=== PATIENT | female | born 1935 | race Caucasian/White ===

== ENCOUNTER 2016-11-30 11:35 | Emergency (ER) | payer MEDICARE, OTHER ==
[~2016-11-30] VITALS: Ht 172.7 cm; Wt 79.4 kg
[2016-11-30 11:35] VITALS: BP 149/65; PULSE 81; RESP 19; TEMP 98.2; O2SAT 95
[~2016-11-30 11:35] MED LIST: ATEN-41 PO; LEVO25TA58 PO; POTA8CAP PO; SIMV5TAB53 PO; WARF1TAB2 PO; [UNRECOGNIZED DRUG - CODE] PO; [UNRECOGNIZED DRUG - CODE] PO
--- NOTE | 2016-11-30 11:35 | NUR ---
BROUGHT IN BY MARIELA THOMASON AND PLACED IN BED #6, TRIAGED, REPORT GIVEN TO [place]
[2016-11-30 13:04] LABS: ALANINE AMINOTRANSFERASE 18 U/L (12-78); ALBUMIN 3.9 g/dL (3.4-4.8); ANION GAP 7 (5-15); ASPARTATE AMINOTRANSFERASE 19 U/L (10-37); CALCIUM 10.9 mg/dL (8.4-11.0); CHLORIDE 98 mmol/L (98-107); CHOLESTEROL 187 mg/dL (<200); GLUCOSE 102 mg/dL (70-99); HDL CHOLESTEROL 61 mg/dL (>55); LDL CHOLESTEROL 109 mg/dL (<100); POTASSIUM 3.5 mmol/L (3.5-5.1); SODIUM SERUM 135 mmol/L (136-145); TOTAL BILIRUBIN 0.5 mg/dL (0.0-1.0); TOTAL PROTEIN, SERUM 7.9 g/dL (6.4-8.3); TRIGLYCERIDES 59 mg/dL (30-150)
[2016-11-30 13:06] LABS: BASOPHILS % (AUTO) 0.2 % (0.0-2.0); EOSINOPHILS % (AUTO) 0.2 % (0.0-4.0); HEMATOCRIT 35.8 % (36-48); HEMOGLOBIN 11.8 g/dL (12.0-16.0); INR 2.1 (0.8-1.2); LYMPHOCYTES # (AUTO) 1.4 K/uL (1.0-5.5); MEAN CORPUSCULAR HEMOGLOBIN 30 pg (27-31); MEAN CORPUSCULAR HGB CONC 33 % (32-36); MEAN CORPUSCULAR VOLUME 90 fL (79.0-98.0); MONOCYTES # (AUTO) 0.4 K/uL (0.0-1.0); MONOCYTES % (AUTO) 6.2 % (1.7-9.3); NEUTROPHILS % (AUTO) 68.4 % (40.0-70.0); PLATELET COUNT (AUTO) 183 K/uL (130-430); PROTHROMBIN TIME 23.9 SECS (9.5-12.5); RED BLOOD CELL COUNT(AUTO) 3.97 MIL/uL (4.2-6.2); RED CELL DISTRIBUTION WIDTH 13.7 % (9.0-15.0); WHITE BLOOD COUNT (AUTO) 5.8 K/uL (4.8-10.8)
[2016-11-30 13:15] LABS: UREA NITROGEN, BLOOD 24 mg/dL (8-21)
--- NOTE | 2016-11-30 13:34 | NUR ---
DR ZAYAS AT BEDSIDE FOR EVALUATION
--- NOTE | 2016-11-30 13:36 | NUR ---
ER at bedside examining patient.
--- NOTE | 2016-11-30 13:45 | NUR ---
Pt c/o bib EMS c/o dizziness. Pt reports dizziness resolved prior to ED arrival.
--- NOTE | 2016-11-30 13:50 | NUR ---
PT [address] TEST.
--- NOTE | 2016-11-30 14:05 | NUR ---
Patient given written and verbal discharge instructions and verbalizes understanding. ER MD discussed with patient the results and treatment provided. Given copies of tests performed in ER. Patient in stable condition. ID arm band removed. Rx of Antivert given. Patient educated on pain management and to follow up with PMD. Pain Scale 0. Opportunity for questions provided and answered.
[2016-11-30 14:06] VITALS: BP 140/82; PULSE 86; RESP 19; TEMP 98.2; O2SAT 95
== END 2016-11-30 14:06 | disposition home or self-care (01) ==
LOC: SED 11:36
DX: R42 Dizziness and giddiness (principal); I10 Essential (primary) hypertension; I48.91 Unspecified atrial fibrillation; Z88.0 Allergy status to penicillin; Z88.1 Allergy status to other antibiotic agents
CPT/HCPCS: 36415; 71010; 80053; 80061; 83880; 84484; 85025; 85610-TC; 85730-TC; 93005; 99285

== ENCOUNTER 2019-08-27 00:43 | Inpatient (IN) | payer MEDICARE, OTHER ==
[2019-08-27] VITALS (7 sets, daily range): BP systolic 116–145
[~2019-08-27] VITALS: Ht 170.2 cm; Wt 103.5 kg
[~2019-08-27 00:43] MED LIST changes: +LEVO25TA2 PO; -LEVO25TA58 PO; -SIMV5TAB53 PO; +SIMV5TAB59 PO; +[UNRECOGNIZED DRUG - CODE] PO; -[UNRECOGNIZED DRUG - CODE] PO
[2019-08-27] MEDS ORDERED: NACL 0.9% 1,000 ML IV ONE ×2 (00:49→06:45)
[2019-08-27] MEDS ORDERED: IPRATROPIUM BROM 0.5 MG/2.5 ML VIAL.NEB (ATROVENT) IH ONE ×2 (01:00→06:15)
[2019-08-27] MEDS ORDERED: ALBUTEROL SULFATE 0.083% 2.5 MG/3 ML VIAL.NEB IH ONE ×2 (01:00→06:15)
[2019-08-27 01:46] LABS: ANION GAP 13 (5-15); CALCIUM 10.7 mg/dL (8.4-11.0); CHLORIDE 96 mmol/L (98-107); CREATININE 0.91 mg/dL (0.55-1.30); GLUCOSE 148 mg/dL (70-99); POTASSIUM 3.3 mmol/L (3.5-5.1); SODIUM SERUM 133 mmol/L (136-145); UREA NITROGEN, BLOOD 11 mg/dL (8-21)
[2019-08-27 01:54] LABS: BASOPHILS % (AUTO) 0.2 % (0.0-2.0); HEMATOCRIT 36.2 % (36-48); HEMOGLOBIN 12.1 g/dL (12.0-16.0); LYMPHOCYTES % (AUTO) 21.3 % (20.5-51.5); MEAN CORPUSCULAR HEMOGLOBIN 31 pg (27-31); MEAN CORPUSCULAR HGB CONC 34 % (32-36); MEAN CORPUSCULAR VOLUME 92 fL (79.0-98.0); MONOCYTES # (AUTO) 0.6 K/uL (0.0-1.0); NEUTROPHILS # (AUTO) 3.1 K/uL (1.8-7.7); NEUTROPHILS % (AUTO) 66.5 % (40.0-70.0); PLATELET COUNT (AUTO) 129 K/uL (130-430); RED BLOOD CELL COUNT(AUTO) 3.92 MIL/uL (4.2-6.2); RED CELL DISTRIBUTION WIDTH 15.7 % (9.0-15.0); WHITE BLOOD COUNT (AUTO) 4.7 K/uL (4.8-10.8)
[2019-08-27 02:00] LABS: ALANINE AMINOTRANSFERASE 15 U/L (12-78); AMYLASE 60 U/L (0-100); ASPARTATE AMINOTRANSFERASE 24 U/L (10-37); LIPASE 153 U/L (73-393); TOTAL BILIRUBIN 0.9 mg/dL (0.0-1.0)
[2019-08-27 02:07] LABS: ALCOHOL, BLOOD < 3 mg/dL (<10)
[2019-08-27 02:25] LABS: INR 3.3 (0.8-1.2)
[2019-08-27 03:06] LABS: PROTHROMBIN TIME 32.1 SECS (9.5-12.5)
[2019-08-27] MEDS ORDERED: IPRATROPIUM/ALBUTEROL SULFATE 3 ML AMPUL.NEB (DUONEB) INH PRN (06:15)
[2019-08-27] MEDS ORDERED: FURO-149 PO (10:42)
[2019-08-27] MEDS ORDERED: LEVO200T8 PO (10:50)
[2019-08-27] MEDS ORDERED: WARF4TAB2 PO (10:50)
[2019-08-27] MEDS: AZITHROMYCIN 250 MG TABLET PO ONE ×2 (11:00→12:00)
[2019-08-27] MEDS ORDERED: methylPREDNISolone SOD SUCC 40 MG/ML VIAL IVP ONE (11:00)
[2019-08-27] MEDS: IPRATROPIUM/ALBUTEROL SULFATE 3 ML AMPUL.NEB (DUONEB) INH SCH ×3 (11:14→20:03)
[2019-08-27] MEDS: cefTRIAXone 1 GM IVPB PREMIX 50 ML IV SCH (12:22)
[2019-08-27] MEDS ORDERED: FUROSEMIDE 40 MG TABLET PO ONE (13:00)
[2019-08-27] MEDS ORDERED: ATENOLOL 25 MG TABLET(TENORMIN) PO ONE (13:00)
[2019-08-27] MEDS ORDERED: LEVOTHYROXINE SODIUM 0.1 MG TABLET PO ONE (13:15)
[2019-08-27] MEDS ORDERED: POTASSIUM CHLORIDE 20 MEQ TAB.PRT.SR PO ONE (13:30)
[2019-08-27] MEDS ORDERED: DOXYCYCLINE HYCLATE 100 MG CAPSULE PO ONE (13:45)
[2019-08-27] MEDS ORDERED: THIAMINE HCL 100 MG TABLET PO ONE (13:45)
[2019-08-27] MEDS: WARFARIN SODIUM 2 MG TABLET PO SCH (17:23)
[2019-08-27] MEDS ORDERED: WARFARIN SODIUM 4 MG TABLET PO SCH (18:00)
[2019-08-27] MEDS: DOXYCYCLINE HYCLATE 100 MG CAPSULE PO SCH (21:00)
[2019-08-27] MEDS: methylPREDNISolone SOD SUCC 40 MG/ML VIAL IVP SCH (21:02)
[2019-08-28 00:22] VITALS: BP_SYST 158
[2019-08-28] MEDS ORDERED: ACETAMINOPHEN 325 MG TABLET PO PRN (01:00)
[2019-08-28] MEDS ORDERED: LORazepam 1 MG TABLET PO PRN (01:00)
[2019-08-28] MEDS ORDERED: FUROSEMIDE 40 MG/4 ML VIAL IVP SCH (01:10)
[2019-08-28] MEDS: IPRATROPIUM/ALBUTEROL SULFATE 3 ML AMPUL.NEB (DUONEB) INH PRN ×2 (01:27→16:56)
[2019-08-28] MEDS ORDERED: LEVOTHYROXINE SODIUM 0.1 MG TABLET PO SCH (06:00)
[2019-08-28] MEDS: IPRATROPIUM/ALBUTEROL SULFATE 3 ML AMPUL.NEB (DUONEB) INH SCH ×4 (06:19→19:08)
[2019-08-28 06:54] LABS: ANION GAP 9 (5-15); CALCIUM 10.7 mg/dL (8.4-11.0); CHLORIDE 97 mmol/L (98-107); CREATININE 0.82 mg/dL (0.55-1.30); GLUCOSE 154 mg/dL (70-99); POTASSIUM 3.4 mmol/L (3.5-5.1); SODIUM SERUM 133 mmol/L (136-145); UREA NITROGEN, BLOOD 14 mg/dL (8-21)
[2019-08-28 06:55] LABS: BASOPHILS % (AUTO) 0.1 % (0.0-2.0); HEMATOCRIT 35.3 % (36-48); HEMOGLOBIN 12.1 g/dL (12.0-16.0); LYMPHOCYTES # (AUTO) 0.6 K/uL (1.0-5.5); LYMPHOCYTES % (AUTO) 19.9 % (20.5-51.5); MEAN CORPUSCULAR HEMOGLOBIN 31 pg (27-31); MEAN CORPUSCULAR HGB CONC 34 % (32-36); MEAN CORPUSCULAR VOLUME 90 fL (79.0-98.0); MONOCYTES # (AUTO) 0.2 K/uL (0.0-1.0); MONOCYTES % (AUTO) 7.2 % (1.7-9.3); NEUTROPHILS # (AUTO) 2.3 K/uL (1.8-7.7); NEUTROPHILS % (AUTO) 72.8 % (40.0-70.0); PLATELET COUNT (AUTO) 135 K/uL (130-430); RED BLOOD CELL COUNT(AUTO) 3.92 MIL/uL (4.2-6.2); RED CELL DISTRIBUTION WIDTH 15.5 % (9.0-15.0); WHITE BLOOD COUNT (AUTO) 3.1 K/uL (4.8-10.8)
[2019-08-28 06:57] LABS: INR 3.3 (0.8-1.2)
[2019-08-28 07:04] LABS: PROTHROMBIN TIME 32.8 SECS (9.5-12.5)
[2019-08-28] MEDS: DOXYCYCLINE HYCLATE 100 MG CAPSULE PO SCH ×2 (09:00→10:07)
[2019-08-28] MEDS: FOLIC ACID 1 MG TABLET PO SCH ×2 (09:00→10:07)
[2019-08-28] MEDS: POTASSIUM CHLORIDE 20 MEQ TAB.PRT.SR PO SCH ×2 (09:00→10:08)
[2019-08-28] MEDS ORDERED: AZITHROMYCIN 250 MG TABLET PO SCH (09:00)
[2019-08-28] MEDS: FUROSEMIDE 40 MG TABLET PO SCH ×2 (09:00→10:07)
[2019-08-28] MEDS: ATENOLOL 25 MG TABLET(TENORMIN) PO SCH ×2 (09:00→10:07)
[2019-08-28] MEDS: THIAMINE HCL 100 MG TABLET PO SCH ×2 (09:00→10:07)
[2019-08-28] MEDS: methylPREDNISolone SOD SUCC 40 MG/ML VIAL IVP SCH (10:04)
[2019-08-28] MEDS ORDERED: FUROSEMIDE 20 MG/2 ML VIAL IVP ONE (10:30)
[2019-08-28 10:49] VITALS: BP_SYST 153
[2019-08-28] MEDS: cefTRIAXone 1 GM IVPB PREMIX 50 ML IV SCH (12:05)
[2019-08-28 12:36] VITALS: BP_SYST 161
[2019-08-28 16:18] VITALS: BP_SYST 158
[2019-08-28] MEDS: WARFARIN SODIUM 2 MG TABLET PO SCH (18:00)
[2019-08-28 19:57] VITALS: BP_SYST 129
== END 2019-08-28 23:45 | disposition short-term general hospital (02) | DRG 189 ==
LOC: SED 00:43 → STU 06:08
PROVIDERS: ADMIT Internal Medicine; ATTEND Internal Medicine
DX: J96.01 Acute respiratory failure with hypoxia (principal); I50.43 Acute on chronic combined systolic (congestive) and diastolic (congestive) heart failure; J18.0 Bronchopneumonia, unspecified organism; R65.11 Systemic inflammatory response syndrome (SIRS) of non-infectious origin with acute organ dysfunction; J44.1 Chronic obstructive pulmonary disease with (acute) exacerbation; L03.116 Cellulitis of left lower limb; I48.20 Chronic atrial fibrillation, unspecified; E87.1 Hypo-osmolality and hyponatremia; L03.115 Cellulitis of right lower limb; E87.2 Acidosis; E66.9 Obesity, unspecified; E87.6 Hypokalemia; D72.819 Decreased white blood cell count, unspecified; I11.0 Hypertensive heart disease with heart failure; E03.9 Hypothyroidism, unspecified; J84.10 Pulmonary fibrosis, unspecified; E78.5 Hyperlipidemia, unspecified; F03.90 Unspecified dementia, unspecified severity, without behavioral disturbance, psychotic disturbance, mood disturbance, and anxiety; I87.2 Venous insufficiency (chronic) (peripheral); T45.515A Adverse effect of anticoagulants, initial encounter; Y92.89 Other specified places as the place of occurrence of the external cause; Z88.1 Allergy status to other antibiotic agents; Z88.8 Allergy status to other drugs, medicaments and biological substances; Z79.899 Other long term (current) drug therapy; Z68.35 Body mass index [BMI] 35.0-35.9, adult
CPT/HCPCS: 36415; 36600; 71045; 71250-TC; 80048; 80053; 82150-TC; 82550-TC; 82803-TC; 83605; 83690-TC; 83880; 84484; 85025; 85610-TC; 85730-TC; 87040-TC; 87070-TC; 87205-TC; 93005; 94010; 94640; 94760; 96360; 96361; 97112-GP; 99285; G0378; G0482; J0696; J1030; J1940; J7030; J7613; J7620; Q0144